=== PATIENT | male | born 1990 ===

== ENCOUNTER 2024-12-12 11:10 | Emergency (ER) | payer OTHER ==
[~2024-12-12] VITALS: Ht 167.6 cm; Wt 121.5 kg
[2024-12-12 11:16] VITALS: BP 163/98; PULSE 89; RESP 14; TEMP 97.3; O2SAT 99
[2024-12-12] MEDS ORDERED: AMOX875T10 PO (12:52)
--- NOTE | 2024-12-12 12:53 | Physician Documentation ---
HPI ~ General Chief Complaint: Tooth Problem Stated Complaint: TOOTH PAIN Time Seen by MD: 11:30 OK to notify your PCP?: Yes Primary Medical Doctor: none Source: patient, RN/MD History of Present Illness HPI Comment Patient is seen today with complaints of pain of his left upper jaw. Patient states he had part of his filling fall out about nine months ago and he states it just recently got infected. He just needs some antibiotics. Patient has no other concern or complaint at this time. Medication Reconciliation Allergies: Coded Allergies: No Known Allergies (Unverified , 12/12/24) Review of Systems Constitutional: Denies: chills, fever, weakness Eyes: Denies: pain, blurred vision ENT: Denies: ear pain, nose pain, throat pain, mouth pain Respiratory: Denies: cough, shortness of breath Cardiovascular: Denies: chest pain, palpitations Gastrointestinal: Denies: abdominal pain, nausea, vomiting Genitourinary: Denies: burning, dysuria Male Genitalia: Denies: penile discharge, testicular pain Neurological: Denies: headache, dizziness Musculoskeletal: Denies: pain, swelling Integumentary: Denies: rash, lesions Allergic/Immunologic: Denies: hives, itching Hematologic/Lymphatic: Denies: no symptoms reported Psychiatric: Denies: depression, anxiety Physical Exam Vital Signs: Temperature: 97.3, Source: Temporal, Heart Rate: 89, Respiratory Rate: 14, BP: 163/98, Pulse Oximetry: 99, Weight: 121.550 Oxygen Flow Rate: 0 Physical Exam General: Awake and Alert, no acute distress. HEENT: Patient has swelling of his left upper jaw. No involvement of the orbits. Conjunctiva pink, Sclera clear, Mucus Membranes moist. Neck: Supple without masses and tenderness. Resp: Unlabored. Lungs clear to auscultation bilaterally. Heart: Regular Rate and rhythm, normal S1 and S2 without murmur, rub or gallop. Extremities: No cyanosis,clubbing or edema. Skin: Warm and Dry. Progress Results/Orders Results/Orders Vital Signs 12/12/24 11:16 Temp 97.3 Pulse 89 Resp 14 B/P (MAP) 163/98 Pulse Ox 99 O2 Flow Rate 0 Medical Decision Making Findings Patient is seen today with complaints of pain of his left upper jaw. Patient states he had part of his filling fall out about nine months ago and he states it just recently got infected. He just needs some antibiotics. Patient has no other concern or complaint at this time. Prescription of amoxicillin 875 mg one tab twice a day by mouth for 10 days sent to patient pharmacy [facility] to be taken as prescribed. Patient will follow up with dentist as soon as possible. Return to ED with any worsening, concerning or changing symptoms Departure Disposition: HOME / SELF CARE / HOMELESS Impression: Primary Impression: Dental abscess Condition: Stable Discharge Instructions: Dental Abscess Additional Instructions: Prescription of amoxicillin 875 mg one tab twice a day by mouth for 10 days sent to patient pharmacy [facility] to be taken as prescribed. Patient will follow up with dentist as soon as possible. Return to ED with any worsening, concerning or changing symptoms Referrals: NO PRIMARY CARE PROVIDER (PCP) Prescriptions Amoxicillin Trihydrate (Amoxicillin) 875 Mg Tablet 1 TAB PO Q12H for 10 Days, #20 TAB Prov: JULIO CÉSAR BERNAL 12/12/24 Signature Scribe Signature: No scribe Attestation: No scribe JULIO CÉSAR BERNAL Dec 12, 2024 12:53
== END 2024-12-12 12:58 | disposition home or self-care (01) ==
LOC: ER 11:11
DX: K04.7 Periapical abscess without sinus (principal)
CPT/HCPCS: 99283